=== PATIENT | male | born 1985 | race African-American/Black ===

== ENCOUNTER 2021-07-11 14:53 | Emergency (ER) | payer OTHER ==
[~2021-07-11] VITALS: Ht 172.7 cm; Wt 78.4 kg
[2021-07-11 15:00] VITALS: BP 136/83
[2021-07-11] MEDS ORDERED: LIDOCAINE 5% (LIDODERM) PATCH TD ONE (19:10)
[2021-07-11] MEDS ORDERED: methocarbamoL 500 MG TAB PO ONE (19:10)
[2021-07-11] MEDS ORDERED: KETOROLAC 30 MG/ML 1ML VIAL IM ONE (19:10)
[2021-07-11] MEDS ORDERED: LIDO5DIS41 TOP (19:49)
[2021-07-11] MEDS ORDERED: METH-1164 PO (19:49)
[2021-07-11] MEDS ORDERED: **NOTE PATIENT COMMENT** MISC XX SCH (21:00)
== END 2021-07-11 20:34 | disposition home or self-care (01) ==
LOC: M ED 14:53
DX: M54.5 Low back pain (principal)
CPT/HCPCS: 96372; 99282; J1885